=== PATIENT | male | born 1995 | race Caucasian/White ===

== ENCOUNTER 2016-11-20 17:55 | Emergency (ER) | payer SELFPAY ==
[~2016-11-20 17:55] MED LIST: NO HOME MEDICATION XX
[2016-11-20] MEDS ORDERED: IBUPROFEN600 M1 PO (19:03)
== END 2016-11-20 19:14 ==
LOC: EDMED 17:55
PROC: 0HCGXZZ Extirpation of Matter from Left Hand Skin, External Approach (ICD-10-PCS; principal; 2016-11-20)
DX: S67.21XA Crushing injury of right hand, initial encounter (principal); S60.042A Contusion of left ring finger without damage to nail, initial encounter; F17.200 Nicotine dependence, unspecified, uncomplicated; W23.0XXA Caught, crushed, jammed, or pinched between moving objects, initial encounter